=== PATIENT | female | born 1995 | race Caucasian/White ===

== ENCOUNTER 2022-07-19 14:51 | Emergency (ER) | payer SELFPAY ==
[2022-07-19] MEDS ORDERED: Ketorolac Tromethamine 30 MG/ML VIAL ONE (15:29)
[2022-07-19] MEDS ORDERED: Diazepam 5 MG TAB ONE (16:41)
[2022-07-19] MEDS ORDERED: Morphine 4 MG/ML VIAL ONE (16:41)
[2022-07-19] MEDS ORDERED: Dexamethasone 10 MG/ML VIAL ONE (16:41)
[2022-07-19 18:15] LABS: Bacteria/HPF 3+ HPF (None Seen); Bilirubin Negative (Negative); Blood, Urine 1+ (Negative); Clarity Turbid (Clear); Glucose, Urine (Dipstick) Normal (Negative); Ketone, Urine Negative (Negative); Leukocyte Negative Leu/uL (Negative); Nitrite Negative (Negative); Protein, Urine (Dipstick) 10 mg/dL (Neg-Trace); Specific Gravity, Urine 1.015 (1.002-1.036); Squamous Epithelial 0-3 HPF (0-3); Urobilinogen Normal mg/dL (Less than 2); WBC/HPF 0-3 HPF (0-3)
[2022-07-19 18:16] LABS: Pregnancy Test - Urine (BHCG) Negative (Negative); Pregu Control Background? CLEAR/WHITE (CLR/WHITE); Pregu Control Bar Appear? YES (CONTROL BAR); Specific Gravity 1.015 (1.002-1.036)
== END 2022-07-19 19:09 | disposition home or self-care (01) ==
LOC: ERS 14:51
DX: M54.50 Low back pain, unspecified (principal)
CPT/HCPCS: 81003; 81015; 81025; 96372; 99283; J1100; J1885; J2270

== ENCOUNTER 2022-07-21 12:18 | Emergency (ER) | payer SELFPAY ==
[2022-07-21] MEDS ORDERED: Ketorolac Tromethamine 30 MG/ML VIAL ONE (13:22)
[2022-07-21] MEDS ORDERED: Cyclobenzaprine 10 MG TAB ONE (13:22)
[2022-07-21] MEDS ORDERED: HYDROcodone/Acetaminophen 7.5/325 mg Tablet ONE (13:22)
[2022-07-21] MEDS ORDERED: methylPREDNISolone Sod Succ/PF 125 MG/2 ML VIAL ONE (13:22)
== END 2022-07-21 14:29 | disposition home or self-care (01) ==
LOC: ERS 12:18
DX: M54.42 Lumbago with sciatica, left side (principal)
CPT/HCPCS: 96372; 99283; J1885; J2930

== ENCOUNTER 2023-06-29 05:06 | Emergency (ER) | payer OTHER, SELFPAY ==
[2023-06-29] MEDS ORDERED: HYDROcodone/Acetaminophen 5/325 mg Tablet ONE (05:25)
== END 2023-06-29 06:37 | disposition home or self-care (01) ==
LOC: ERS 05:06
DX: S02.601A Fracture of unspecified part of body of right mandible, initial encounter for closed fracture (principal); V19.9XXA Pedal cyclist (driver) (passenger) injured in unspecified traffic accident, initial encounter
CPT/HCPCS: 70450; 70486